=== PATIENT | male | born 1960 | race Caucasian/White ===

== ENCOUNTER → 2016-07-22 | Day surgery (SDC) | payer BC ==
[~2016-07-22] MED LIST: AMBIEN PO; AMLODIPINE BESYL5 MG PO; ASPIRIN PO; AZOR 5/20 MG TA1 TAB PO; BAYER ASPIRIN325 M1 PO; CLARITIN10 M2 PO; CLARITIN10 MG; CLARITIN10 MG PO; CLARITIN5 MG PO; DOCUSATE SODIU100 MG PO; DURATUSS; FLEXERIL PO; FLEXERIL10 MG PO; FOLIC ACID1 MG PO; IRON TABLETS1 TAB PO; IRON1 TAB PO; LIDODERM30 EA; LIDODERM30 EA TOP; LOTREL 5/20 MG1 CAP PO; METHADONE; METHADONE HCL10 MG PO; METHADONE PO; METHADOSE5 MG; METHADOSE5 MG PO; METOPROLOL TAR25 MG PO; MUCINEX DM1 TAB.SR . PO; MULTI VITAMIN1 EACH PO; NORVASC PO; PERCOCET 10/31 UDTA1 PO; PERCOCET 5-3251 TAB PO; PHENERGAN25 MG PO; PROTONIX PO; REMERON; REMERON PO; REMERON30 MG PO; SERZONE; SERZONE PO; TEMAZEPAM PO; VISTARIL PO; VIT B-12 PO; ZANTAC; ZANTAC PO
--- NOTE | ~2016-07-22 | OR ---
Unit #: [id number] #: [id number] Patient: JERSEY MCCLELLAN [id number] [address] [place], [place] [address] [id number] O MR#: [id number] NAME: JERSEY MCCLELLAN ROOM: Date of Procedure: 07/22/2016 Admission Date: 07/22/2016 Surgeon: Hi Gleason M.D. : 1960 Attending Physician: Hi Gleason M.D. Primary Care Physician: Herman Peterson M.D. OPERATIVE REPORT PREOPERATIVE DIAGNOSES Back pain, radiculopathy, herniated nucleus pulposus, post-laminectomy. POSTOPERATIVE DIAGNOSES Back pain, radiculopathy, herniated nucleus pulposus, post-laminectomy. PROCEDURE PERFORMED Lumbar epidural steroid injection with intravenous sedation and fluoroscopic guidance for needle localization. INDICATIONS FOR PROCEDURE The patient is a 56-year-old male, who has return of back and bilateral lower extremity pain. He has known disk herniation to the right at the L2-L3 level, the left at L3-L4, central and bilateral at L4-L5 slightly worse to the right and post-laminectomy changes with extensive granulation tissue at L5-S1. The patient was treated medically with p.r.n. epidural steroid injections. Last were completed about 6-1/2 months ago. The patient did well for 5 to 6 months with 75% settling of symptoms initially. Over the last 2 months, the pain has begun to return. Based on history, pathology, symptomatology, and treatment options, we are going to proceed with a repeat injection today. The patient often taken at least two injections to settle his symptom complex adequately. DESCRIPTION OF PROCEDURE The patient was placed in a seated position. Standard monitors were applied. 3 mg of Versed were given for sedation and anxiolysis, which were adequate. Vital signs remained stable. Sterile prep and drape then of the lumbar area was performed. The skin at the right of midline at the L4 level was localized with 1% lidocaine. An 18-gauge Canonical needle was then advanced via right paramedian approach and loss of resistance technique in toward the epidural space. The patient did not complain of pain or paresthesia during needle advancement. After confirming proper positioning with fluoroscopy and radiographic contrast, dose of 80 mg of Depo-Medrol and 4 mL of 0.125% bupivacaine were deposited. The patient tolerated the procedure otherwise well and was discharged to the recovery room in stable condition. Dictated by... Hi Gleason M.D. Unit #: [id number] #: [id number] Patient: JERSEY MCCLELLAN LHP/amado TD: 07/22/2016 22:22 JOB #: [id number] OPERATIVE REPORT Page 1 of 1 X Hi Gleason MD X PROCEDURE OPERATIVE NOTE
== END | disposition home or self-care (01) ==
LOC: CCSC 07:20
DX: M51.16 Intervertebral disc disorders with radiculopathy, lumbar region (principal); I25.2 Old myocardial infarction; I10 Essential (primary) hypertension; K21.9 Gastro-esophageal reflux disease without esophagitis; Z88.5 Allergy status to narcotic agent; Z79.82 Long term (current) use of aspirin; Z79.891 Long term (current) use of opiate analgesic; Z79.899 Other long term (current) drug therapy; Z98.890 Other specified postprocedural states
CPT/HCPCS: J1040; J2250

== ENCOUNTER → 2016-07-29 | Day surgery (SDC) | payer BC ==
--- NOTE | ~2016-07-29 | OR ---
Unit #: [id number] #: [id number] Patient: JERSEY MCCLELLAN [id number] [address] [place], [place] [address] [id number] O MR#: [id number] NAME: JERSEY MCCLELLAN ROOM: Date of Procedure: 07/29/2016 Admission Date: 07/29/2016 Surgeon: Hi Gleason M.D. : 1960 Attending Physician: Hi Gleason M.D. Primary Care Physician: Herman Peterson M.D. OPERATIVE REPORT PREOPERATIVE DIAGNOSES Postlaminectomy syndrome, herniated nucleus pulposus, back pain, radiculopathy. POSTOPERATIVE DIAGNOSES Postlaminectomy syndrome, herniated nucleus pulposus, back pain, radiculopathy. PROCEDURE PERFORMED Lumbar epidural steroid injection with intravenous sedation and fluoroscopic guidance for needle localization. INDICATIONS FOR PROCEDURE The patient is a 56-year-old male with return of back and bilateral lower extremity pains due to previously mentioned diagnosis. He has disk herniations at the L2-L3, L3-L4, and L4-L5 levels, post-laminectomy changes at L5-S1. He was treated medically with p.r.n. epidural steroid injections. Last injection done a bit over 6 months ago. Repeat injection done last week, which resulted in significant settling of his symptom complex. Based on good partial response, pathology, and symptomatology, we are going to proceed with a repeat injection today. DESCRIPTION OF PROCEDURE The patient was placed in a seated position. Standard monitors were applied. 3 mg of Versed was given for sedation and anxiolysis, which were adequate. Vital signs remained stable. Sterile prep and drape then of the lumbar area was performed. The skin then to the right of midline at the L4 level was localized with 1% lidocaine. An 18-gauge [employer] needle was then advanced via right paramedian approach and loss of resistance technique in toward the epidural space. After confirming proper positioning with fluoroscopy and radiographic contrast, 80 mg of Depo-Medrol and 6 mL of 0.125% bupivacaine were deposited. The patient tolerated the procedure otherwise well and was discharged to recovery room in stable condition. Dictated by... Hi Gleason M.D. LHP/modl Unit #: [id number] #: [id number] Patient: JERSEY MCCLELLAN TD: 07/30/2016 00:54 JOB #: [id number] OPERATIVE REPORT Page 1 of 1 X Hi Gleason MD X PROCEDURE OPERATIVE NOTE
== END | disposition home or self-care (01) ==
LOC: CCSC 07:28
DX: M96.1 Postlaminectomy syndrome, not elsewhere classified (principal); M51.16 Intervertebral disc disorders with radiculopathy, lumbar region; I25.2 Old myocardial infarction; I10 Essential (primary) hypertension; K21.9 Gastro-esophageal reflux disease without esophagitis; Z88.6 Allergy status to analgesic agent; Z79.891 Long term (current) use of opiate analgesic; Z79.899 Other long term (current) drug therapy
CPT/HCPCS: J1040; J2250

== ENCOUNTER → 2016-08-05 | Day surgery (SDC) | payer BC ==
--- NOTE | ~2016-08-05 | OR ---
Unit #: [id number] #: [id number] Patient: JERSEY MCCLELLAN [id number] [address] [place], [place] [address] [id number] O MR#: [id number] NAME: JERSEY MCCLELLAN ROOM: Date of Procedure: 08/05/2016 Admission Date: 08/05/2016 Surgeon: Hi Gleason M.D. : 1960 Attending Physician: Hi Gleason M.D. Primary Care Physician: Herman Peterson M.D. OPERATIVE REPORT PREOPERATIVE DIAGNOSES Back pain, radiculopathy, degenerative disk disease, post-laminectomy syndrome. POSTOPERATIVE DIAGNOSES Back pain, radiculopathy, degenerative disk disease, post-laminectomy syndrome. PROCEDURE PERFORMED Lumbar epidural steroid injection with intravenous sedation and fluoroscopic guidance for needle localization. INDICATIONS FOR PROCEDURE The patient is a 56-year-old male with return of back and bilateral lower extremity pains due to previous mentioned diagnosis. He had laminectomy at the L5-S1 level. He has disk herniation at L2-L3, essentially left disk herniation at L3-L4, central and right at L4-L5. Epidural steroids last done 7 months ago. He did well until just recently. He has had 2 injections in the last few weeks, which helped to settle his back and right leg significantly. He still is having primary issues with left leg pain that is improved as well. Based on his history, pathology, symptomatology, and prior response to treatment, we are going to proceed with a final injection today. DESCRIPTION OF PROCEDURE The patient was placed in a seated position. Standard monitors were applied. 3 mg of Versed were given for sedation and anxiolysis, which were adequate. Vital signs remained stable. Sterile prep and drape then of lumbar area was performed. The skin then to the left of midline at the L4 level was localized with 1% lidocaine. An 18-gauge [employer] needle was then advanced via left paramedian approach and loss of resistance technique in toward the epidural space. After confirming proper positioning with fluoroscopy and radiographic contrast, 80 mg of Depo-Medrol and 4 mL of 0.5% lidocaine were deposited. The patient tolerated the procedure otherwise well and was discharged to recovery room in stable condition. Dictated by... Hi Gleason M.D. [facility] Unit #: [id number] #: [id number] Patient: JERSEY MCCLELLAN TD: 08/06/2016 01:50 JOB #: [id number] OPERATIVE REPORT Page 1 of 1 X Hi Gleason MD X PROCEDURE OPERATIVE NOTE
== END | disposition home or self-care (01) ==
LOC: CCSC 07:29
DX: M51.16 Intervertebral disc disorders with radiculopathy, lumbar region (principal); M96.1 Postlaminectomy syndrome, not elsewhere classified; I10 Essential (primary) hypertension; K21.9 Gastro-esophageal reflux disease without esophagitis; I25.2 Old myocardial infarction
CPT/HCPCS: J1040; J2250